=== PATIENT | female | born 1985 | race Caucasian/White ===

== ENCOUNTER 2019-05-08 00:06 | Emergency (ER) | payer OTHER ==
--- NOTE | 2019-05-08 00:24 | PDOC ---
Documentation entered by Radha Ford SCRIBE, acting as scribe for Hali Crawley MD. Hali Crawley MD: This documentation has been prepared by the garyibe, Radha Ford SCRIBE, under my direction and personally reviewed by me in its entirety. I confirm that the documentation accurately reflects all work, treatment, procedures, and medical decision making performed by me. Attending Attestation - Resident Resident Name: James Momin - ED Attending Attestation I have performed the following: I have examined & evaluated the patient, The case was reviewed & discussed with the resident, I agree w/resident's findings & plan, Exceptions are as noted - HPI HPI: 05/08/19 00:57 The patient is a 34-year-old female with no reported past medical history presents to the emergency department with a sudden onset of a left flank and LLQ pain. The patient reports the pain initially was sharp, currently, its dull and achy in quality. The patient reports associated symptoms of nausea, vomiting, and hematuria. The patient reports she was noted to have hematuria on testing at PCPs office, for which she had a CT done. The patient states her PCP told her that the test was unremarkable. - Physicial Exam PE: 05/08/19 00:59 GENERAL: Well developed, well nourished. Awake and alert. No acute distress. HEENT: Normocephalic, atraumatic. PERRLA, EOMI. No conjunctival pallor. Sclera are non- icteric. Moist mucous membranes. Oropharynx is clear. NECK: Supple. Full ROM. No JVD. CARDIOVASCULAR: Regular rate and rhythm. No murmurs, rubs, or gallops. PULMONARY: No evidence of respiratory distress. Lungs clear to auscultation bilaterally. No wheezing, rales or rhonchi. ABDOMINAL: Soft. Non-tender. Non-distended. No rebound or guarding. No organomegaly. MUSCULOSKELETAL Normal range of motion at all joints. No bony deformities or tenderness. No CVA tenderness. EXTREMITIES: No cyanosis. No clubbing. No edema. No calf tenderness. SKIN: Warm and dry. No rashes. No jaundice. NEUROLOGICAL: Alert, awake, appropriate. Cranial nerves 2-12 intact. PSYCHIATRIC: Cooperative. Good eye contact. Appropriate mood and affect. - Medical Decision Making 05/08/19 01:07 54-year-old female presents because of sudden intermittent left flank pain and nausea and vomiting.She has had similar symptoms before . She is currently undergoing a workup for hematuria and reports having a CAT scan of abdomen and pelvis being done by her PCP and she reports being told that there were no abnormal findings on the ct scan UA done tonight shows microscopic hematuria 05/08/19 01:35 cbc is wnl chemistries show [id number] 05/08/19 02:03 Renal ultrasound: normal kidneys, no masses,no stones,no hydronephrosis imp hematuria pt referred to urologist
[2019-05-08 00:31] VITALS: BMI 29.0
[2019-05-08 00:45] LABS: EPI CELLS 2.4 /HPF (0-5/HPF); HYALINE CASTS 9 /lpf (0-8); PH,URINE 5.5 (5.0-8.0); URINE APPEARANCE CLEAR; URINE BILIRUBIN NEGATIVE (NEGATIVE); URINE COLOR YELLOW; URINE GLUCOSE (UA) TRACE (NEGATIVE); URINE KETONE 1+ (NEGATIVE); URINE LEUK ESTERASE NEGATIVE (NEGATIVE); URINE NITRITE NEGATIVE (NEGATIVE); URINE PROTEIN NEGATIVE (NEGATIVE); URINE RBC 59 /hpf (0-4); URINE UROBILINOGEN 0.2 mg/dL (0.2-1.0); URINE WBC 3 /hpf (0-5)
[2019-05-08 01:10] LABS: BASO % 0.2 % (0-2.0); EOS % 0.5 % (0-4.5); HEMATOCRIT 39.5 % (32.4-45.2); HEMOGLOBIN 13.3 GM/dL (10.7-15.3); LYMPH % 9.9 % (8-40); MCH 28.8 pg (25.7-33.7); MCHC 33.5 g/dl (32.0-36.0); MEAN CELL VOLUME 85.8 fl (80-96); MEAN PLT VOLUME 7.8 fl (7.5-11.1); MONO % 4.2 % (3.8-10.2); NEUT % 85.2 % (42.8-82.8); PLATELET COUNT 185 K/MM3 (134-434); RDW 14.4 % (11.6-15.6); WHITE BLOOD COUNT 8.6 K/mm3 (4.0-10.0)
--- NOTE | 2019-05-08 01:19 | PDOC ---
History of Present Illness - General Chief Complaint: Pain, Acute Stated Complaint: ABDOMINAL PAIN Time Seen by Provider: 05/08/19 00:22 History Source: Patient, Spouse ( present at bedside.) Exam Limitations: No Limitations - History of Present Illness Initial Comments: HPI: 34 y/o female presenting to [facility] ER complaining of sudden onset of left flank pain approx. 2 hours prior to arrival. Pain started while she was laying down. Described as sharp in nature with some radiation to LLQ. Intense pain has improved and she is now endorsing an achy pain mostly in LLQ. Endorses 3-4 episodes of nonbloody emesis after start of pain. Denies urinary symptoms tonight, but experienced gross hematuria a few weeks ago. Underwent CTAP w/ and w/o contrast at outpatient imaging center. Unable to provide any documentation but reports everything was normal according to her PCP. Is now awaiting OBGYN f/ u appt. Medical Hx: - Pt denies past medical history. Denies prescription medications. - IUD in place. Surgical Hx: - S/p cholecystectomy - S/p - S/p tonsillectomy Review of Systems: In addition to that documented in the HPI above, the additional ROS was obtained : Constitutional: Endorses chills without fever or sweats Head: Denies vision changes ENMT: Denies sore throat CV: Denies chest pain Resp: Denies SOB GI: Endorses vomiting. Denies diarrhea : Denies painful urination, hematuria, increased urinary frequency, or vaginal discharge MSK: Denies recent trauma Skin: Denies new rashes Neuro: Denies new numbness or tingling or weakness Endocrine: Denies polyuria Heme: Denies bleeding or bruising Physical Examination: Constitutional: Well-developed, well-nourished adult female in no acute distress or obvious discomfort. Found semi-fowlers on hospital bed. Alert and oriented x4. Answered all questions appropriately and completely. Speech was non -labored, non-pressured. Head: Normocephalic. No obvious external signs of trauma. Cardiovascular / Chest: Regular rate and regular rhythm. No murmur, rubs, clicks , or gallops. Peripheral pulses: radial pulses full. Respiratory: Breathing unlabored. Equal chest rise and fall. Clear to auscultation bilaterally. No stridor, no wheezing, no rhonchi. Gastrointestinal: abdomen is tender in LLQ and L flank with grimace but no rebound or guarding. Globally, the abdomen is soft and nondistended. No overlying skin lesions. Neuro: Alert and oriented. Moving all four extremities spontaneously. Skin: Warm, dry, and intact. : No R or L CVA tenderness. Psych: Affect: appropriate. Mood: normal. MDM: *Reviewed vital signs, nursing notes, and prior visit documentation (if available). Previously healthy 34 y/o female presenting with left flank pain w/ vomiting. Improved on arrival without intervention. Reportedly normal outpatient CT last week. Afebrile. Vitals unremarkable for hypotension or tachycardia. Physical exam as described above. No acute abdominal signs. UA remarkable for hematuria without pyuria, nitrites, or leukocyte esterase. U/S unremarkable for hydronephrosis. CBC unremarkable for leukocytosis. CMP unremarkable for elevated Cr or BUN. Suspect symptoms are likely secondary to nephrolithiasis. Will prescribe Naproxen for pain relief and refer to urology clinic. Discussed imaging and laboratory results with pt. Answered all questions. Provided return precautions. Pt expressed verbal understanding and agreement with plan to discharge home with outpatient follow up. James Momin M.D., PGY2 Emergency Medicine Resident Past History - Past Medical History Allergies/Adverse Reactions: Allergies Allergy/AdvReac Type Severity Reaction Status Date / Time No Known Allergies Allergy Verified 05/08/19 00:19 Home Medications: Ambulatory Orders Naproxen [Naprosyn -] 500 mg PO BID PRN 7 Days #14 tablet 05/08/19 Asthma: No Cancer: No Cardiac Disorders: No COPD: No Diabetes: No HTN: No Seizures: No Thyroid Disease: No - Suicide/Smoking/Psychosocial Hx Smoking History: Never smoked Have you smoked in the past 12 months: No Hx Alcohol Use: No Drug/Substance Use Hx: No Hx Substance Use Treatment: No *Physical Exam - Vital Signs Last Vital Signs Temp Pulse Resp BP Pulse Ox 97.3 F L 64 18 141/90 99 05/08/19 00:20 05/08/19 00:20 05/08/19 00:20 05/08/19 00:20 05/08/19 00:20 ED Treatment Course - LABORATORY CBC & Chemistry Diagram: 05/08/19 01:03 05/08/19 01:03 - ADDITIONAL ORDERS Additional order review: Laboratory Results 05/08/19 05/08/19 00:34 00:34 Urine Color Yellow Urine Appearance Clear Urine pH 5.5 Ur Specific [place] 1.023 Urine Protein Negative Urine Glucose (UA) Trace Urine Ketones 1+ H Urine Blood 3+ H Urine Nitrite Negative Urine Bilirubin Negative Urine Urobilinogen 0.2 Ur Leukocyte Esterase Negative Urine WBC (Auto) 3 Urine RBC (Auto) 59 Urine Casts (Auto) 9 U Epithel Cells (Auto) 2.4 Urine Bacteria (Auto) 12.0 Urine HCG, Qual Negative 05/08/19 01:03 RBC 4.60 MCV 85.8 MCHC 33.5 RDW 14.4 MPV 7.8 Neutrophils % 85.2 H Lymphocytes % 9.9 D Monocytes % 4.2 Eosinophils % 0.5 Basophils % 0.2 - RADIOLOGY Radiology Studies Ordered: Category Date Time Status KIDNEY / RENAL US [US] Stat Ultrasound 05/08/19 00:51 Ordered Radiograph Interpretation: Renal U/S: THIS IS A PRELIMINARY REPORT FROM [facility] DATE OF SERVICE: 2019-05-08 01:05:53 IMAGES: 24 EXAM: ULTRASOUND RENAL Normal kidneys. No renal mass, stones or hydronephrosis. THIS DOCUMENT HAS BEEN ELECTRONICALLY SIGNED Tg Hopkins M.D. 05/08/2019 01:55 EST *DC/Admit/Observation/Transfer Diagnosis at time of Disposition: Left flank pain, Left lower quadrant abdominal pain - Discharge Dispostion Disposition: HOME Condition at time of disposition: Good Decision to Admit order: No - Prescriptions Prescriptions: Naproxen [Naprosyn -] 500 mg PO BID PRN 7 Days #14 tablet PRN Reason: Pain - Referrals Referrals: Sandra Pozo MD [Primary Care Provider] - Flaquito Gunderson MD [Staff Physician] - - Patient Instructions Printed Discharge Instructions: DI for Flank Pain Additional Instructions: You were seen tonight for left flank and lower abdomen pain. Your urine test showed blood without signs of an infection. Your blood work was normal. Your ultrasound was normal. Your pain may be related to a kidney stone. I have sent a prescription for a pain medication called Naproxen to your pharmacy. Take as directed on the package insert. Do not exceed the recommended dosage. Do not take with other NSAID medications such as Ibuprofen, Advil, or Motrin. You should follow up with a urologist. I have placed a consult in for you to see Dr. Gunderson. You will need to call to make an appointment. The number is included in this packet. A copy of todays results are attached to this packet. Take it to the appointment so your doctor can review them. You can also follow up with your primary care doctor within the next 3-4 days. You will need to call to make an appointment. The number is included in this packet. A copy of todays results are attached to this packet. Take it to the appointment so your doctor can review them. Go to the nearest emergency department if your condition worsens or you feel like you need additional emergency evaluation. Print Language: YAKUT - Post Discharge Activity Forms/Work/School Notes: Back to Work
[2019-05-08 01:32] LABS: ALBUMIN 4.1 g/dl (3.4-5.0); BILIRUBIN,TOTAL 0.3 mg/dL (0.2-1); BLOOD UREA NITROGEN 18.4 mg/dL (7-18); CALCIUM 9.2 mg/dL (8.5-10.1); CREATININE 0.9 mg/dL (0.55-1.3); POTASSIUM 3.4 mmol/L (3.5-5.1)
[2019-05-08 02:41] VITALS: BP 117/69; PULSE 75; TEMP 98
== END 2019-05-08 02:45 | disposition home or self-care (01) ==
LOC: JER 00:06
DX: R10.32 Left lower quadrant pain (principal); R31.9 Hematuria, unspecified
CPT/HCPCS: 36415; 76775-TC; 80053; 81003; 84703; 85025; 87086; 99282-25

== ENCOUNTER 2019-06-02 22:05 | Emergency (ER) | payer OTHER ==
[2019-06-02 22:19] VITALS: TEMP 97.9; BMI 31.6
--- NOTE | 2019-06-02 22:34 | PDOC ---
History of Present Illness - General Chief Complaint: Pain Stated Complaint: ABDOMINAL PAIN History Source: Patient Exam Limitations: No Limitations - History of Present Illness Initial Comments: 06/02/19 22:32 34 yo F with a hx of C/S and cholecystectomy presents to the emergency department with acute onset of LLQ pain. Per the patient, the pain is sharp, radiates to the groin, 10/10 in severity, and is constant. The patient states she was seen 3 weeks ago for similar problem with hematuria. She had abd pelvis CT 2 months ago for presumed nephrolithiasis that was negative for acute process. Endorses C/S and has an IUD for 5 years (mirena). Endorses multiple non bloody non billious vomiting. Denies the following: fever, chills, hematuria , dysuria, diarrhea, constipation (last BM today and is having flatulence), chest pain, SOB, vaginal bleeding, vaginal discharge, hx of ovarian disease, hematochezia, melena, back pain, and leg pain/swelling. Pmhx: Refer to above Shx: Refer to above Meds: None Allergies: NKDA Social: Denies tobacco, alcohol, and substance abuse Past History - Past Medical History Allergies/Adverse Reactions: Allergies Allergy/AdvReac Type Severity Reaction Status Date / Time No Known Allergies Allergy Verified 06/02/19 22:21 Home Medications: Ambulatory Orders Naproxen [Naprosyn -] 500 mg PO BID PRN 7 Days #14 tablet 05/08/19 Asthma: No Cancer: No Cardiac Disorders: No COPD: No Diabetes: No HTN: No Seizures: No Thyroid Disease: No - Suicide/Smoking/Psychosocial Hx Smoking History: Never smoked Have you smoked in the past 12 months: No Information on smoking cessation initiated: No Hx Alcohol Use: No Drug/Substance Use Hx: No Hx Substance Use Treatment: No Review of Systems - Review of Systems Able to Perform ROS?: Yes Is the patient limited Swedish proficient: No Constitutional: No: Chills, Diaphoresis, Fever, Weakness HEENTM: No: Eye Pain, Ear Pain, Nose Pain, Throat Pain, Mouth Pain Respiratory: No: Cough, Shortness of Breath, Hemoptysis Cardiac (ROS): No: Chest Pain, Lightheadedness, Palpitations, Syncope, Chest Tightness ABD/GI: Yes: Nausea, Vomiting, Abdominal cramping. No: Constipated, Diarrhea, Rectal Bleeding, Tarry Stools : No: Burning, Hematuria, Incontinence Musculoskeletal: No: Back Pain, Joint Pain, Neck Pain Integumentary: No: Bruising, Erythema, Rash Neurological: No: Headache, Numbness, Tingling, Tremors Psychiatric: No: Change in Appetite Endocrine: No: Unexplained Weight Gain Hematologic/Lymphatic: No: Anemia *Physical Exam - Vital Signs Last Vital Signs Temp Pulse Resp BP Pulse Ox 97.9 F 55 L 18 137/79 100 06/02/19 22:16 06/02/19 22:16 06/02/19 22:16 06/02/19 22:16 06/02/19 22:16 - Physical Exam General Appearance: Yes: Nourished, Appropriately Dressed, Other (appears uncomfortable). No: Intoxicated HEENT: positive: EOMI, KELLY, Normal Voice, Symmetrical, Pharynx Normal, Hearing Grossly Normal. negative: Pale Conjunctivae, Scleral Icterus (R), Scleral Icterus (L), Muffled/Hoarse voice, Pharyngeal Erythema, Tonsillar Exudate, Tonsillar Erythema, Nasal Congestion, Rhinorrhea, Sinus Tenderness, Excessive drooling Neck: positive: Trachea midline, Supple. negative: Tender, Lymphadenopathy (R) , Lymphadenopathy (L), Tender lateral, Tender midline Respiratory/Chest: positive: Lungs Clear, Normal Breath Sounds. negative: Chest Tender, Respiratory Distress, Accessory Muscle Use, Crackles, Rales, Rhonchi, Stridor, Wheezing Cardiovascular: positive: Regular Rhythm, Regular Rate, S1, S2. negative: Systolic Murmur Female Pelvic Exam: positive: normal external exam, cervical os closed, normal adnexa, other (blood in the vaginal vault. Unable to visualize IUD string but was palpated on bimanual.). negative: CMT Gastrointestinal/Abdominal: positive: Tender (LLQ), Flat, Soft, Decreased BS Lymphatic: negative: Adenopathy Musculoskeletal: positive: Normal Inspection, CVA Tenderness (L). negative: CVA Tenderness (R), Vertebral Tenderness Extremity: positive: Normal Capillary Refill, Normal Inspection, Normal Range of Motion. negative: Tender, Swelling, Calf Tenderness Integumentary: positive: Normal Color, Dry, Warm Neurologic: positive: engine lathe tender II-XII NML intact, Fully Oriented, Alert, Normal Mood/ Affect, Normal Response ED Treatment Course - LABORATORY CBC & Chemistry Diagram: 06/02/19 22:50 06/02/19 22:50 Medical Decision Making - Medical Decision Making 06/02/19 22:40 34 yo F with a hx of C/S and cholecystectomy presents to the emergency department with acute onset of LLQ pain. Per the patient, the pain is sharp, radiates to the groin, 10/10 in severity, and is constant. Initial vitals: Initial Vital Signs Temp Pulse Resp BP Pulse Ox 97.9 F 55 L 18 137/79 100 06/02/19 22:16 06/02/19 22:16 06/02/19 22:16 06/02/19 22:16 06/02/19 22:16 Work up: ddx: ovarian torsion vs migration of IUD vs PID vs UTI vs nephrolithiasis vs diverticulitis vs colitis vs SBO patient presents with acute onset of abdominal pain in LLQ. concerns exist for possible obstruction vs ovarian pathology. will order cbc, cmp, ua, urine culture, pt/inr, ts, bhcg, lactic acid. interventions include NS, morphine (4 mg). *DC/Admit/Observation/Transfer Diagnosis at time of Disposition: Vaginal bleeding, Abdominal pain - Discharge Dispostion Disposition: HOME Decision to Admit order: No - Referrals Referrals: Sandra Pozo MD [Primary Care Provider] - Mckayla Calderón MD [Staff Physician] - - Patient Instructions Printed Discharge Instructions: DI for Intrauterine Device Insertion, DI for Vaginal Bleeding, DI for Hematuria Additional Instructions: You were seen in the emergency department for your abdominal pain. Your ultrasound was negative for acute processes and a report was given to you. Please follow up with the obgyn physician referred to you within 1 week. Please return to the emergency department if you have worsening pain or new concerning symptoms such as fever, chills, and vaginal discharge. Thank you. - Post Discharge Activity
[2019-06-02] MEDS ORDERED: morphine CARPU-JECT 4 MG/1 ML DISP.SYRIN IVPUSH ONE (22:36)
[2019-06-02] MEDS ORDERED: SODIUM CHLORIDE 1,000 ML IV STA (22:36)
[2019-06-02] MEDS ORDERED: morphine SULFATE 4 MG/ML VIAL ONE (22:56)
[2019-06-02 23:04] LABS: BASO % 0.6 % (0-2.0); EOS % 0.7 % (0-4.5); HEMATOCRIT 38.9 % (32.4-45.2); HEMOGLOBIN 13.3 GM/dL (10.7-15.3); LYMPH % 18.8 % (8-40); MCHC 34.1 g/dl (32.0-36.0); NEUT % 73.9 % (42.8-82.8); PLATELET COUNT 265 K/MM3 (134-434); RBC 4.58 M/mm3 (3.60-5.2); RDW 13.8 % (11.6-15.6); WHITE BLOOD COUNT 8.7 K/mm3 (4.0-10.0)
[2019-06-02 23:14] LABS: INR 1.08 (0.83-1.09); PROTHROMBIN TIME (PATIENT) 12.8 SEC (9.7-13.0)
[2019-06-02 23:29] LABS: ALBUMIN 4.5 g/dl (3.4-5.0); BILIRUBIN,TOTAL 0.5 mg/dL (0.2-1); BLOOD UREA NITROGEN 18.4 mg/dL (7-18); CALCIUM 9.5 mg/dL (8.5-10.1); CREATININE 0.9 mg/dL (0.55-1.3); POTASSIUM 3.5 mmol/L (3.5-5.1); TOT PROT 7.4 g/dl (6.4-8.2)
[2019-06-03 00:22] LABS: EPI CELLS 1.7 /HPF (0-5/HPF); HYALINE CASTS 6 /lpf (0-8); PH,URINE 5.5 (5.0-8.0); URINE APPEARANCE Error; URINE BACTERIA 13.5 /hpf (NEGATIVE); URINE BILIRUBIN NEGATIVE (NEGATIVE); URINE COLOR YELLOW; URINE GLUCOSE (UA) NEGATIVE (NEGATIVE); URINE KETONE 3+ (NEGATIVE); URINE LEUK ESTERASE NEGATIVE (NEGATIVE); URINE NITRITE NEGATIVE (NEGATIVE); URINE PROTEIN NEGATIVE (NEGATIVE); URINE RBC 6 /hpf (0-4); URINE UROBILINOGEN 0.2 mg/dL (0.2-1.0); URINE WBC 2 /hpf (0-5)
--- NOTE | 2019-06-03 01:40 | PDOC ---
Documentation entered by Kathy Rehman SCRIBE, acting as scribe for Shabnam Khanna MD. Shabnam Khanna MD: This documentation has been prepared by the Ori duron Xhesika, SCRIBE, under my direction and personally reviewed by me in its entirety. I confirm that the documentation accurately reflects all work, treatment, procedures, and medical decision making performed by me. Attending Attestation - Resident Resident Name: Don Grayson - ED Attending Attestation I have performed the following: I have examined & evaluated the patient, The case was reviewed & discussed with the resident, I agree w/resident's findings & plan - HPI HPI: 06/02/19 23:01 The patient is a 34 year old female with a significant past medical history of C /S and cholecystectomy who presents to the ED with acute onset LLQ pain. The patient was seen here in the ED 05/08/19 for similar symptoms and was discharged home with unremarkable labs and normal Renal ultrasound (normal kidneys, no masses,no stones,no hydronephrosis). The patient describes the pain as severe, constant, 10/10, radiating to her L groin. The patient reports associated symptoms of nausea and multiple episodes of nbnb vomiting. The patient reports she had a CT done at her PCPs office 2 months ago that was normal. Patient had a cholecystectomy [address] Jin, that was normal. Denies fever, chills, chest pain, SOB, palpitation, dizziness, weakness, D, bladder and bowel problems, leg swelling, No sick contacts or travel. No new changes in medications. Allergies: None Social history: Lives with family. No tobacco, ETOH or drug use. Surgical history: cholecystectomy Meds: as documented in EMR - Physicial Exam PE: 06/02/19 23:01 Agree with the resident's HPI and PE as documented in the electronic medical record. NAD, well appearing, EOMI, PERRL, MMM, nl conjunctiva, anicteric; neck supple. lungs clear, RRR, abdomen soft nontender. Back nontender. PERAZA x4, no focal neuro deficits. No peripheral edema. normal color for ethnicity, WWP. I chaperoned Dr. Grayson for pelvic exam Female : normal external genitalia, no lesions, (+) scattering of blood in vaginal vault, no CMT, no adnexal tenderness. Smooth and pink cervix, closed. - Medical Decision Making 06/03/19 01:38 hpi as documented prior notes and documentation checked Vital Signs Temp Pulse Resp BP Pulse Ox 97.9 F 55 L 18 137/79 100 06/02/19 22:16 06/02/19 22:16 06/02/19 22:16 06/02/19 22:16 06/02/19 22:16 DDX renal colic, pelvic pain, ovarian cyst, torsion, IUD malfunction, DUB could be UTI, but unremarkable UA labs unremarkable TVUS neg for acute pathology, normal ovaries, no cyst Renal sono neg for hydro could be hormonal vs cyclical related and pelvic exam with vaginal bleeding scantly in the vault. unlikely hematuria with neg cysto and pelvic exam. data processing manager followup, pt made aware of impression and plan Pt to be discharged in stable condition. Patient made aware of clinical impression, treatment recommendations and disposition plan, return precautions discussed (including but not limited to new or persistent/worsening symptoms, pain, fevers, or signs of infection, chest pain, respiratory distress, inability to tolerate oral intake, dehydration, syncope, or neurologic changes) . Follow up with PMD and/or specialist as recommended, follow up information provided, take medications as instructed for duration of time. continue with supportive care, avoid triggers and precipitants. All questions answered to patient's satisfaction and expressed understanding and comfort with this. At the time of discharge, the patient is alert, clinically improved, tolerating po and verbalizes understanding of instructions, satisfied with the care received and felt comfortable with the plan. Patient does not suffer from an acute life- threatening medical condition at this time and is safe for outpatient follow- up. 06/03/19 17:55 06/03/19 17:55
[2019-06-03 02:33] VITALS: BP 143/83; PULSE 63
== END 2019-06-03 02:10 | disposition home or self-care (01) ==
LOC: JER 22:05
PROC: 3E033NZ Introduction of Analgesics, Hypnotics, Sedatives into Peripheral Vein, Percutaneous Approach (ICD-10-PCS; principal; 2019-06-02)
DX: N93.8 Other specified abnormal uterine and vaginal bleeding (principal)
CPT/HCPCS: 36415; 76775-TC; 76830-TC; 80053; 81003; 83605; 84702; 85025; 85610; 86850; 86900; 86901; 87086; 87491; 87591; 99283-25; J7030